=== PATIENT | female | born 1985 | race African-American/Black ===

== ENCOUNTER 2018-10-14 17:47 | Emergency (ER) | payer OTHER ==
[~2018-10-14] VITALS: Ht 160 cm; Wt 51.3 kg
[2018-10-14 18:05] VITALS: BP 114/71; Ht 160 cm; Wt 51.3 kg
== END 2018-10-14 20:32 | disposition home or self-care (01) ==
LOC: ED 17:47
DX: S16.1XXA Strain of muscle, fascia and tendon at neck level, initial encounter (principal); S39.012A Strain of muscle, fascia and tendon of lower back, initial encounter; V49.9XXA Car occupant (driver) (passenger) injured in unspecified traffic accident, initial encounter; Y93.I9 Activity, other involving external motion; Y92.413 State road as the place of occurrence of the external cause; Y99.8 Other external cause status
CPT/HCPCS: J1885